=== PATIENT | male | born 1975 | race Two or more races ===

== ENCOUNTER 2024-10-07 20:47 | Inpatient (IN) | payer OTHER ==
[~2024-10-07] VITALS: Ht 177 cm; Wt 62.1 kg
[2024-10-07 20:10] VITALS: O2SAT 97
[2024-10-07 20:15] VITALS: BP 106/69; TEMP 99
[2024-10-07 23:10] VITALS: O2SAT 97
[2024-10-08] VITALS (14 sets, daily range): BP systolic 103–132; BP diastolic 55–78; TEMP 98–99; O2SAT 97–98
[2024-10-08] MEDS ORDERED: BLOOD SUGAR DIAGNOSTIC 1 EACH STRIP VI SCH
[2024-10-08] MEDS ORDERED: INSULIN REGULAR, HUMAN 1000 UNIT/10 ML VIAL SQ PRN
[2024-10-08] MEDS ORDERED: DEXTROSE 50% 50 ML DISP.SYRIN IV PRN (07:15)
[2024-10-08] MEDS: HYDROGEN PEROXIDE 3% 118 ML BOTTLE TP SCH (07:18)
[2024-10-08] MEDS ORDERED: VITAMINS A AND D 5 GM UD PKT TP PRN (09:15)
[2024-10-08] MEDS: COD LIVER OIL/ZINC OXIDE OINT 113 GM TUBE TP SCH ×2 (09:57→09:58)
[2024-10-08] MEDS: VITAMINS A AND D 5 GM UD PKT TP SCH (09:58)
[2024-10-08] MEDS: TUBERCULIN,PURIF.PROT.DERIV. 5 TU/0.1 ML TEST ID ONE (09:58)
[2024-10-08] MEDS: NEOMY/BACITRA/POLYMYXIN B OINT UD PACKET TP SCH ×6 (09:58)
[2024-10-08] MEDS: CHLORHEXIDINE GLUCONATE 15 ML MOUTHWASH MM SCH (11:47)
[2024-10-08] MEDS: BLOOD SUGAR DIAGNOSTIC 1 EACH STRIP VI SCH (12:32)
[2024-10-08] MEDS: INSULIN REGULAR, HUMAN 1000 UNIT/10 ML VIAL SQ PRN (12:37)
[2024-10-08] MEDS ORDERED: ACETAMINOPHEN 650 MG/20 ML UDC- SA PATIENTS-FEVER ONLY GT PRN (16:15)
[2024-10-08] MEDS: ACETYLCYSTEINE 20% 800 MG/4 ML VIAL INH SCH (16:45)
[2024-10-08] MEDS ORDERED: IRR STERIL WATER FOR IRR 1000 ML BOTTLE GT SCH (17:00)
[2024-10-08] MEDS: POLYVINYL ALCOHOL OPHT DROPS 15 ML BOTTLE EACHEYE SCH (17:56)
[2024-10-08] MEDS: CLONIDINE HCL 0.1 MG TABLET GT SCH (17:56)
[2024-10-08] MEDS: PROPRANOLOL HCL 10 MG TABLET GT SCH (17:56)
[2024-10-08] MEDS: IPRATROPIUM BROMIDE 0.5 MG/2.5 ML NEBU NEB SCH (19:30)
[2024-10-08] MEDS: ALBUTEROL SULFATE 2.5 MG/3 ML NEBU NEB SCH (19:30)
[2024-10-08] MEDS: POLYETHYLENE GLYCOL 3350 238 GM POWDER GT ONE (20:16)
[2024-10-08] MEDS: SENNOSIDES 1 TABLET GT SCH (20:19)
[2024-10-08] MEDS: AMANTADINE HCL 50 MG/5 ML GT SCH (21:00)
[2024-10-08] MEDS: ENOXAPARIN SODIUM 30 MG/0.3 ML DISP.SYRIN SUBCUT SCH (21:44)
[2024-10-09] VITALS (15 sets, daily range): BP systolic 97–132; BP diastolic 68–83; TEMP 97.8–99.6; O2SAT 97–98
[2024-10-09] MEDS: ACETAMINOPHEN 650 MG/20 ML UDC- SA PATIENTS-PAIN ONLY GT PRN (04:02)
[2024-10-09] MEDS ORDERED: ACETYLCYSTEINE 20% 800 MG/4 ML VIAL INH SCH (08:57)
[2024-10-09] MEDS: MULTIVIT, IRON, MIN NO. 8, FA TABLET GT SCH (09:00)
[2024-10-09] MEDS: PANTOPRAZOLE ORAL SUSPENSION 40 MG SUSPDR.PKT GT SCH (09:00)
[2024-10-09] MEDS: AMANTADINE HCL 50 MG/5 ML GT SCH (09:00)
[2024-10-09] MEDS: AMLODIPINE 5 MG TABLET GT SCH (09:00)
[2024-10-09] MEDS: CLONIDINE HCL 0.1 MG TABLET GT SCH (14:00)
[2024-10-09] MEDS: GLUCERNA 1.2 1000ML LIQUID GT PRN (19:18)
[2024-10-09] MEDS: ENOXAPARIN SODIUM 30 MG/0.3 ML DISP.SYRIN SUBCUT SCH (20:34)
[2024-10-10] VITALS (18 sets, daily range): BP systolic 104–121; BP diastolic 55–74; TEMP 98–99.5; O2SAT 97–98
[2024-10-10] MEDS: HYDROCODONE/APAP 5-325MG TABLET GT PRN (05:00)
[2024-10-10] MEDS: PANTOPRAZOLE ORAL SUSPENSION 40 MG SUSPDR.PKT GT SCH (05:01)
[2024-10-10] MEDS ORDERED: CLONIDINE HCL 0.2 MG TABLET GT SCH (14:00)
[2024-10-10] MEDS: CLONIDINE HCL 0.1 MG TABLET GT SCH (14:03)
[2024-10-10] MEDS ORDERED: PROPRANOLOL HCL 20 MG TABLET GT SCH (17:00)
[2024-10-10] MEDS: MULTIVIT, IRON, MIN NO. 8, FA TABLET GT SCH (21:12)
[2024-10-10] MEDS: MUPIROCIN 2% OINT 22 GM TUBE NS SCH (21:14)
[2024-10-11] VITALS (13 sets, daily range): BP systolic 119–131; BP diastolic 82–91; TEMP 98.7–99.2; O2SAT 97–98
[2024-10-12] VITALS (15 sets, daily range): BP systolic 101–108; BP diastolic 72; TEMP 97.8–99.1; O2SAT 97–98
[2024-10-13] VITALS (13 sets, daily range): BP systolic 109–117; BP diastolic 80–85; TEMP 98.1–99.3; O2SAT 96–99
[2024-10-13 07:30] LABS: PLATELET COUNT (AUTO) 334 K/uL (152-348); RED BLOOD CELL COUNT(AUTO) 4.55 MIL/uL (4.06-5.63); RED CELL DISTRIBUTION WIDTH 17.3 % (12.1-16.2); WHITE BLOOD COUNT (AUTO) 7.8 K/uL (3.6-10.2)
[2024-10-13 07:56] LABS: IRON, SERUM 39 ug/dL (50-175)
[2024-10-13 08:12] LABS: ASPARTATE AMINOTRANSFERASE 25 U/L (15-37); CREATININE 0.6 mg/dL (0.6-1.3); NT-PRO BNP 36 pg/mL (0-125); SODIUM SERUM 141 mmol/L (136-145); TOTAL PROTEIN, SERUM 7.6 g/dL (6.4-8.2); UREA NITROGEN, BLOOD 13 mg/dL (7-18)
[2024-10-14] VITALS (14 sets, daily range): BP systolic 124; BP diastolic 82–87; TEMP 98.8–99.6; O2SAT 95–99
[2024-10-14] MEDS: OMEPRAZOLE 40 MG CAPSULE.DR GT SCH (05:17)
[2024-10-14] MEDS ORDERED: ENOXAPARIN SODIUM 30 MG/0.3 ML DISP.SYRIN ONE (06:38)
[2024-10-15] VITALS (12 sets, daily range): BP systolic 115–126; BP diastolic 83–86; TEMP 99.1–99.3; O2SAT 97–100
[2024-10-16] VITALS (14 sets, daily range): BP systolic 126–132; BP diastolic 85–90; TEMP 97.1–98.6; O2SAT 97–98
[2024-10-17] VITALS (16 sets, daily range): BP systolic 116–122; BP diastolic 82–86; TEMP 97.5–98.4; O2SAT 96–98
[2024-10-17 16:00] LABS: PLATELET COUNT (AUTO) 314 K/uL (152-348); RED BLOOD CELL COUNT(AUTO) 4.59 MIL/uL (4.06-5.63); RED CELL DISTRIBUTION WIDTH 16.7 % (12.1-16.2); WHITE BLOOD COUNT (AUTO) 9.4 K/uL (3.6-10.2)
[2024-10-17 16:25] LABS: ASPARTATE AMINOTRANSFERASE 22 U/L (15-37); CREATININE 0.5 mg/dL (0.6-1.3); SODIUM SERUM 138 mmol/L (136-145); TOTAL PROTEIN, SERUM 7.6 g/dL (6.4-8.2); UREA NITROGEN, BLOOD 12 mg/dL (7-18)
[2024-10-17] MEDS: VANCOMYCIN IV 1,250 MG in IV DEXTROSE 5% 250 ML IV SCH (18:00)
[2024-10-17] MEDS ORDERED: MEROPENEM 1 G in IV NORMAL SALINE 100 ML IV SCH (22:00)
[2024-10-17] MEDS: MEROPENEM 1 G in IV NORMAL SALINE 100 ML IV SCH (22:00)
[2024-10-18] VITALS (11 sets, daily range): BP systolic 124–126; BP diastolic 89–91; TEMP 98.5–99.6; O2SAT 96–99
[2024-10-18] MEDS: VANCOMYCIN IV 1,250 MG in IV DEXTROSE 5% 250 ML IV SCH (18:28)
[2024-10-19] VITALS (13 sets, daily range): BP systolic 128–142; BP diastolic 86–96; TEMP 98.4–99.2; O2SAT 98–100
[2024-10-19] MEDS: NEOMY/BACITRA/POLYMYXIN B OINT UD PACKET TP SCH (10:05)
[2024-10-19] MEDS: VANCOMYCIN IV 1,250 MG in IV DEXTROSE 5% 250 ML IV SCH (16:28)
[2024-10-20] VITALS (11 sets, daily range): BP systolic 121–142; BP diastolic 88–99; TEMP 97.1–100.1; O2SAT 98–100
[2024-10-20] MEDS: MEROPENEM 1 G in IV NORMAL SALINE 100 ML IV SCH (18:00)
[2024-10-20] MEDS: VANCOMYCIN IV 1,250 MG in IV DEXTROSE 5% 250 ML IV SCH (18:00)
[2024-10-21] VITALS (14 sets, daily range): BP systolic 117–134; BP diastolic 81–93; TEMP 97.8–98.9; O2SAT 97–99
[2024-10-21] MEDS: INSULIN GLARGINE,HUM 300 UNITS/3 ML CARTRIDGE SQ SCH (05:54)
[2024-10-21 06:45] LABS: PLATELET COUNT (AUTO) 403 K/uL (152-348); RED BLOOD CELL COUNT(AUTO) 4.75 MIL/uL (4.06-5.63); RED CELL DISTRIBUTION WIDTH 16.7 % (12.1-16.2); WHITE BLOOD COUNT (AUTO) 7.5 K/uL (3.6-10.2)
[2024-10-21 06:55] LABS: CREATININE 0.6 mg/dL (0.6-1.3); SODIUM SERUM 140 mmol/L (136-145); UREA NITROGEN, BLOOD 14 mg/dL (7-18)
[2024-10-21] MEDS: NORMAL SALINE FLUSH 10 ML DISP.SYRIN IV SCH (09:00)
[2024-10-21 22:20] LABS: *BILIRUBIN,URIN NEGATIVE (NEGATIVE); *BLOOD, URINE NEGATIVE (NEGATIVE); *CLARITY,URINE CLEAR (CLEAR); *COLOR,URINE YELLOW (YELLOW); *KETONES,URINE NEGATIVE (NEGATIVE); *PROTEIN,URINE NEGATIVE (NEGATIVE); *UROBILINOGEN,URINE 0.2 E.U./dl (NORMAL); LEUKOCYTE ESTERASE ,URINE NEGATIVE (NEGATIVE); NITRITE, URINE NEGATIVE (NEGATIVE); UGLUCOSE NEGATIVE (NEGATIVE)
[2024-10-22] VITALS (14 sets, daily range): BP systolic 128–131; BP diastolic 85–95; TEMP 97.4–97.8; O2SAT 97–99
[2024-10-22] MEDS: VANCOMYCIN IV 1,250 MG in IV DEXTROSE 5% 250 ML IV SCH (18:00)
[2024-10-22] MEDS: ARGININE/GLUTAMINE/CALCIUM BMB 1 EACH POWD.PACK GT SCH (21:15)
[2024-10-23] VITALS (14 sets, daily range): BP systolic 127–137; BP diastolic 84–88; TEMP 98–98.2; O2SAT 97–99
[2024-10-23] MEDS: ASCORBIC ACID 500 MG TABLET GT SCH (21:04)
[2024-10-24] VITALS (14 sets, daily range): BP systolic 127–131; BP diastolic 85–93; TEMP 97.9–98.9; O2SAT 96–99
[2024-10-24] MEDS: NEOMY/BACITRA/POLYMYXIN B OINT UD PACKET TP SCH (09:21)
[2024-10-25] VITALS (12 sets, daily range): BP systolic 127–132; BP diastolic 87–96; TEMP 97.9–98; O2SAT 97–99
[2024-10-26] VITALS (15 sets, daily range): BP systolic 112–132; BP diastolic 71–90; TEMP 98–98.1; O2SAT 97–98
[2024-10-27] VITALS (14 sets, daily range): BP systolic 132–135; BP diastolic 93–95; TEMP 98.9–99; O2SAT 97–98
[2024-10-27 07:41] LABS: PLATELET COUNT (AUTO) 501 K/uL (152-348); RED BLOOD CELL COUNT(AUTO) 4.79 MIL/uL (4.06-5.63); RED CELL DISTRIBUTION WIDTH 16.1 % (12.1-16.2); WHITE BLOOD COUNT (AUTO) 7.7 K/uL (3.6-10.2)
[2024-10-27 07:46] LABS: ASPARTATE AMINOTRANSFERASE 202 U/L (15-37); CREATININE 0.5 mg/dL (0.6-1.3); SODIUM SERUM 136 mmol/L (136-145); TOTAL PROTEIN, SERUM 7.9 g/dL (6.4-8.2); UREA NITROGEN, BLOOD 14 mg/dL (7-18)
[2024-10-28] VITALS (12 sets, daily range): BP systolic 120–122; BP diastolic 86–87; TEMP 98.4–98.6; O2SAT 97–98
[2024-10-28] MEDS ORDERED: CIPROFLOXACIN HCL 250 MG TABLET PO SCH (21:00)
[2024-10-28] MEDS: CIPROFLOXACIN HCL 500 MG TABLET GT SCH (22:00)
[2024-10-29] VITALS (11 sets, daily range): BP systolic 117–120; BP diastolic 79–87; TEMP 98.5–98.9; O2SAT 97–98
[2024-10-30] VITALS (13 sets, daily range): BP systolic 116–120; BP diastolic 79–80; TEMP 97.7–97.9; O2SAT 97–98
[2024-10-30] MEDS: GLUCERNA 1.2 1000ML LIQUID GT PRN (14:27)
[2024-10-31] VITALS (13 sets, daily range): BP systolic 125–144; BP diastolic 75–87; TEMP 98.4–98.8; O2SAT 98
[2024-10-31] MEDS: INSULIN GLARGINE,HUM 300 UNITS/3 ML CARTRIDGE SQ SCH (21:10)
[2024-11-01] VITALS (13 sets, daily range): BP systolic 123–127; BP diastolic 79–85; TEMP 98.8; O2SAT 98
[2024-11-02] VITALS (13 sets, daily range): BP systolic 115–125; BP diastolic 83–84; TEMP 98.6–98.7; O2SAT 96–98
[2024-11-02] MEDS: INSULIN GLARGINE,HUM 300 UNITS/3 ML CARTRIDGE SQ SCH (21:00)
[2024-11-03] VITALS (13 sets, daily range): BP systolic 120–130; BP diastolic 84–90; TEMP 97.8–98.6; O2SAT 96–98
[2024-11-03 08:04] LABS: PLATELET COUNT (AUTO) 371 K/uL (152-348); RED BLOOD CELL COUNT(AUTO) 5.00 MIL/uL (4.06-5.63); RED CELL DISTRIBUTION WIDTH 16.1 % (12.1-16.2); WHITE BLOOD COUNT (AUTO) 8.4 K/uL (3.6-10.2)
[2024-11-03 10:51] LABS: ASPARTATE AMINOTRANSFERASE 164 U/L (15-37); CREATININE 0.5 mg/dL (0.6-1.3); SODIUM SERUM 141 mmol/L (136-145); TOTAL PROTEIN, SERUM 7.7 g/dL (6.4-8.2); UREA NITROGEN, BLOOD 14 mg/dL (7-18)
[2024-11-03 15:02] LABS: PLATELET COUNT (AUTO) 374 K/uL (152-348); RED BLOOD CELL COUNT(AUTO) 4.90 MIL/uL (4.06-5.63); RED CELL DISTRIBUTION WIDTH 16.0 % (12.1-16.2); WHITE BLOOD COUNT (AUTO) 8.7 K/uL (3.6-10.2)
[2024-11-04] VITALS (12 sets, daily range): BP systolic 118; BP diastolic 80; TEMP 96.1; O2SAT 96–99
[2024-11-04] MEDS ORDERED: MEDIHONEY= THERAHONEY 1.5 OZ TUBE TOP PRN (11:00)
[2024-11-05] VITALS (13 sets, daily range): BP systolic 127–133; BP diastolic 86–92; TEMP 98.2–98.6; O2SAT 95–99
[2024-11-05] MEDS: MEDIHONEY= THERAHONEY 1.5 OZ TUBE TOP SCH (09:13)
[2024-11-06] VITALS (14 sets, daily range): BP systolic 119–121; BP diastolic 82; TEMP 97.2–97.7; O2SAT 97–99
[2024-11-07] VITALS (14 sets, daily range): BP systolic 110–122; BP diastolic 80–89; TEMP 98–98.4; O2SAT 95–99
[2024-11-08] VITALS (13 sets, daily range): BP systolic 123–124; BP diastolic 84–88; TEMP 97.9–98.8; O2SAT 95–99
[2024-11-09] VITALS (14 sets, daily range): BP systolic 115–131; BP diastolic 78–86; TEMP 98.4–98.8; O2SAT 96–98
[2024-11-10] VITALS (10 sets, daily range): BP systolic 122; BP diastolic 84; TEMP 98.8; O2SAT 97–100
[2024-11-10 14:36] LABS: PLATELET COUNT (AUTO) 293 K/uL (152-348); RED BLOOD CELL COUNT(AUTO) 5.41 MIL/uL (4.06-5.63); RED CELL DISTRIBUTION WIDTH 16.1 % (12.1-16.2); WHITE BLOOD COUNT (AUTO) 10.9 K/uL (3.6-10.2)
[2024-11-10 15:07] LABS: ASPARTATE AMINOTRANSFERASE 99 U/L (15-37); CREATININE 0.6 mg/dL (0.6-1.3); SODIUM SERUM 139 mmol/L (136-145); TOTAL PROTEIN, SERUM 7.5 g/dL (6.4-8.2); UREA NITROGEN, BLOOD 17 mg/dL (7-18)
[2024-11-10] MEDS: COD LIVER OIL/ZINC OXIDE OINT 113 GM TUBE TP SCH (21:00)
[2024-11-11] VITALS (13 sets, daily range): BP systolic 125–137; BP diastolic 90–94; TEMP 98–98.4; O2SAT 96–100
[2024-11-11] MEDS ORDERED: CHLORHEXIDINE GLUCONATE 15 ML MOUTHWASH MM SCH (09:00)
[2024-11-11] MEDS: BACLOFEN 10 MG TABLET GT SCH (21:00)
[2024-11-12] VITALS (13 sets, daily range): BP systolic 121–134; BP diastolic 87–92; TEMP 96.8–98; O2SAT 97–98
[2024-11-13] VITALS (13 sets, daily range): BP systolic 107–114; BP diastolic 73–76; TEMP 97.9–98.1; O2SAT 96–99
[2024-11-14] VITALS (11 sets, daily range): BP systolic 110–120; BP diastolic 77–85; TEMP 98.8–99.1; O2SAT 97–99
[2024-11-14 06:09] LABS: FOLATE (FOLIC ACID), SERUM >20.0 ng/mL (>3.0)
[2024-11-15] VITALS (13 sets, daily range): BP systolic 110–123; BP diastolic 78–86; TEMP 98–98.5; O2SAT 97–100
[2024-11-16] VITALS (11 sets, daily range): BP systolic 119–125; BP diastolic 78–80; TEMP 97.6–98.7; O2SAT 97–100
[2024-11-17] VITALS (13 sets, daily range): BP systolic 107–120; BP diastolic 62–82; TEMP 98.2–98.5; O2SAT 97–99
[2024-11-17 11:09] LABS: METHYLMALONIC ACID 79 nmol/L (0-378)
[2024-11-18] VITALS (13 sets, daily range): BP systolic 110–130; BP diastolic 72–88; TEMP 89.7–98.7; O2SAT 96–99
[2024-11-19] VITALS (13 sets, daily range): BP systolic 123–124; BP diastolic 82–84; TEMP 98.6–98.7; O2SAT 98–99
[2024-11-20] VITALS (12 sets, daily range): BP systolic 126–128; BP diastolic 89–91; TEMP 97.6–98.6; O2SAT 96–99
[2024-11-21] VITALS (13 sets, daily range): BP systolic 117–121; BP diastolic 81–87; TEMP 97.9–98; O2SAT 95–99
[2024-11-22] VITALS (12 sets, daily range): BP systolic 117–125; BP diastolic 77–83; TEMP 97.2–97.8; O2SAT 96–99
[2024-11-23] VITALS (13 sets, daily range): BP systolic 114–130; BP diastolic 79–90; TEMP 98.7–98.8; O2SAT 98–99
[2024-11-24] VITALS (12 sets, daily range): BP systolic 116–128; BP diastolic 85–89; TEMP 98.5–98.6; O2SAT 97–99
[2024-11-25] VITALS (12 sets, daily range): BP systolic 113–131; BP diastolic 66–86; TEMP 97.7–98; O2SAT 97–99
[2024-11-26] VITALS (12 sets, daily range): BP systolic 119–125; BP diastolic 82; TEMP 97.8–97.9; O2SAT 96–99
[2024-11-26] MEDS: NEOMY/BACITRA/POLYMYXIN B OINT UD PACKET TP SCH (09:06)
[2024-11-27] VITALS (14 sets, daily range): BP systolic 121–127; BP diastolic 78–97; TEMP 98–98.1; O2SAT 96–98
[2024-11-27] MEDS: NEOMY/BACITRA/POLYMYXIN B OINT UD PACKET TP SCH (09:05)
[2024-11-28] VITALS (16 sets, daily range): BP systolic 118–122; BP diastolic 72–83; TEMP 97.9; O2SAT 96–98
[2024-11-29] VITALS (15 sets, daily range): BP systolic 118–121; BP diastolic 85–87; TEMP 97.6–97.9; O2SAT 95–98
[2024-11-30] VITALS (12 sets, daily range): BP systolic 114–127; BP diastolic 78–88; TEMP 98–98.2; O2SAT 96–99
[2024-12-01] VITALS (12 sets, daily range): BP systolic 118–125; BP diastolic 80–85; TEMP 97.6–98.5; O2SAT 97–99
[2024-12-02] VITALS (13 sets, daily range): BP systolic 119–127; BP diastolic 81–85; TEMP 98.6–98.8; O2SAT 97–99
[2024-12-03] VITALS (13 sets, daily range): BP systolic 115–119; BP diastolic 80–85; TEMP 97.9–98.2; O2SAT 97–99
[2024-12-04] VITALS (14 sets, daily range): BP systolic 119–121; BP diastolic 85–86; TEMP 97.6–98.1; O2SAT 97–98
[2024-12-05] VITALS (14 sets, daily range): BP systolic 118–124; BP diastolic 85; TEMP 97.4–98.4; O2SAT 97–98
[2024-12-06] VITALS (11 sets, daily range): BP systolic 122–136; BP diastolic 77–86; TEMP 98–98.5; O2SAT 97–98
[2024-12-07] VITALS (13 sets, daily range): BP systolic 115; BP diastolic 81; TEMP 97.5; O2SAT 97–99
[2024-12-08] VITALS (14 sets, daily range): BP systolic 127–130; BP diastolic 85–90; TEMP 97.7–98.8; O2SAT 98
[2024-12-09] VITALS (14 sets, daily range): BP systolic 113–126; BP diastolic 70–77; TEMP 97.6–98.3; O2SAT 96–98
[2024-12-09] MEDS: MINERAL OIL/PETROLAT OPHT OINT 3.5 GM TUBE RIGHTEYE SCH (16:34)
[2024-12-10] VITALS (13 sets, daily range): BP systolic 128–131; BP diastolic 84–87; TEMP 98–98.3; O2SAT 98
[2024-12-11] VITALS (14 sets, daily range): BP systolic 125–139; BP diastolic 86–97; TEMP 95.9–98; O2SAT 96–98
[2024-12-12] VITALS (14 sets, daily range): BP systolic 119–128; BP diastolic 79–86; TEMP 98.3–98.6; O2SAT 96–99
[2024-12-13] VITALS (13 sets, daily range): BP systolic 120–124; BP diastolic 82–85; TEMP 98.3–98.7; O2SAT 95–99
[2024-12-14] VITALS (14 sets, daily range): BP systolic 124–126; BP diastolic 83–85; TEMP 98.7–99.1; O2SAT 96–99
[2024-12-15] VITALS (12 sets, daily range): BP systolic 117–118; BP diastolic 79–86; TEMP 98.9–99; O2SAT 95–99
[2024-12-15 07:39] LABS: PLATELET COUNT (AUTO) 255 K/uL (152-348); RED BLOOD CELL COUNT(AUTO) 5.47 MIL/uL (4.06-5.63); RED CELL DISTRIBUTION WIDTH 16.9 % (12.1-16.2); WHITE BLOOD COUNT (AUTO) 8.8 K/uL (3.6-10.2)
[2024-12-15 08:01] LABS: ASPARTATE AMINOTRANSFERASE 30 U/L (15-37); CREATININE 0.5 mg/dL (0.6-1.3); SODIUM SERUM 144 mmol/L (136-145); TOTAL PROTEIN, SERUM 7.9 g/dL (6.4-8.2); UREA NITROGEN, BLOOD 17 mg/dL (7-18)
[2024-12-16] VITALS (13 sets, daily range): BP systolic 121–129; BP diastolic 80–94; TEMP 98.7–98.9; O2SAT 95–99
[2024-12-17] VITALS (13 sets, daily range): BP systolic 128–138; BP diastolic 89–90; TEMP 98–99; O2SAT 95–99
[2024-12-18] VITALS (14 sets, daily range): BP systolic 129–134; BP diastolic 88–91; TEMP 97.7–99.1; O2SAT 95–99
[2024-12-19] VITALS (13 sets, daily range): BP systolic 113–129; BP diastolic 79–90; TEMP 97.6–98.7; O2SAT 97–99
[2024-12-20] VITALS (14 sets, daily range): BP systolic 114–131; BP diastolic 70–93; TEMP 97.2–98.8; O2SAT 97–99
[2024-12-21] VITALS (13 sets, daily range): BP systolic 115–116; BP diastolic 79–81; TEMP 97.8–98.3; O2SAT 97–99
[2024-12-22] VITALS (14 sets, daily range): BP systolic 116–119; BP diastolic 77–78; TEMP 98.6–98.7; O2SAT 96–99
[2024-12-22] MEDS ORDERED: COD LIVER OIL/ZINC OXIDE OINT 113 GM TUBE TOP PRN (19:15)
[2024-12-23] VITALS (12 sets, daily range): BP systolic 115–127; BP diastolic 82–88; TEMP 97.5–98.8; O2SAT 96–99
[2024-12-24] VITALS (13 sets, daily range): BP systolic 119–152; BP diastolic 85–96; TEMP 98–98.6; O2SAT 96–99
[2024-12-25] VITALS (12 sets, daily range): BP systolic 113–132; BP diastolic 80–95; TEMP 98.1–98.5; O2SAT 97–99
[2024-12-26] VITALS (14 sets, daily range): BP systolic 116–117; BP diastolic 77–84; TEMP 98.1–98.3; O2SAT 97–99
[2024-12-27] VITALS (14 sets, daily range): BP systolic 120–127; BP diastolic 80–85; TEMP 98.1–98.4; O2SAT 97–99
[2024-12-28] VITALS (13 sets, daily range): BP systolic 121–122; BP diastolic 81–83; TEMP 97.6–97.9; O2SAT 97–99
[2024-12-29] VITALS (13 sets, daily range): BP systolic 116–117; BP diastolic 79–80; TEMP 97.5–98.4; O2SAT 98–99
[2024-12-29] MEDS ORDERED: MEDIHONEY= THERAHONEY 1.5 OZ TUBE TOP PRN (18:45)
[2024-12-29] MEDS: COD LIVER OIL/ZINC OXIDE OINT 113 GM TUBE TP SCH (21:31)
[2024-12-30] VITALS (12 sets, daily range): BP systolic 114–124; BP diastolic 75–83; TEMP 97.7–98; O2SAT 97–99
[2024-12-30] MEDS: MEDIHONEY= THERAHONEY 1.5 OZ TUBE TOP SCH (09:00)
[2024-12-31] VITALS (13 sets, daily range): BP systolic 116–126; BP diastolic 78–85; TEMP 96.6–98.2; O2SAT 97–99
[2025-01-01] VITALS (13 sets, daily range): BP systolic 120–128; BP diastolic 80–85; TEMP 97.7–98.4; O2SAT 97–99
[2025-01-02] VITALS (14 sets, daily range): BP systolic 104–129; BP diastolic 73–87; TEMP 97.2–97.6; O2SAT 96–99
[2025-01-03] VITALS (15 sets, daily range): BP systolic 122–130; BP diastolic 79–83; TEMP 98.3–98.5; O2SAT 97–100
[2025-01-04] VITALS (16 sets, daily range): BP systolic 113–123; BP diastolic 79–81; TEMP 98.1–98.6; O2SAT 97–99
[2025-01-05] VITALS (14 sets, daily range): BP systolic 120–148; BP diastolic 79–93; TEMP 99.1–99.7; O2SAT 97–99
[2025-01-06] VITALS (14 sets, daily range): BP systolic 114–134; BP diastolic 80–88; TEMP 97.6–98.5; O2SAT 97–99
[2025-01-07] VITALS (12 sets, daily range): BP systolic 123–132; BP diastolic 82–90; TEMP 98–98.5; O2SAT 96–99
[2025-01-08] VITALS (14 sets, daily range): BP systolic 126–128; BP diastolic 87–89; TEMP 98.2–98.5; O2SAT 96–99
[2025-01-08] MEDS: HYDROGEN PEROXIDE 3% 118 ML BOTTLE TP PRN (20:55)
[2025-01-09] VITALS (15 sets, daily range): BP systolic 121–128; BP diastolic 78–89; TEMP 98.1–98.4; O2SAT 97–99
[2025-01-10] VITALS (14 sets, daily range): BP systolic 112–128; BP diastolic 72–88; TEMP 97.1–97.6; O2SAT 97–99
[2025-01-11] VITALS (14 sets, daily range): BP systolic 124–140; BP diastolic 80–94; TEMP 96.3–98.6; O2SAT 97–99
[2025-01-12] VITALS (14 sets, daily range): BP systolic 114–122; BP diastolic 81–84; TEMP 98.2–98.8; O2SAT 97–99
[2025-01-13] VITALS (13 sets, daily range): BP systolic 118–129; BP diastolic 78–81; TEMP 98.4–98.5; O2SAT 97–99
[2025-01-14] VITALS (12 sets, daily range): BP systolic 127–131; BP diastolic 85–91; TEMP 97.8–99.1; O2SAT 98–99
[2025-01-15] VITALS (13 sets, daily range): BP systolic 118–119; BP diastolic 82–84; TEMP 98.2–98.6; O2SAT 97–99
[2025-01-16] VITALS (13 sets, daily range): BP systolic 98–122; BP diastolic 49–79; TEMP 97.9–98.2; O2SAT 97–99
[2025-01-17] VITALS (14 sets, daily range): BP systolic 119–133; BP diastolic 86–87; TEMP 97.7–98.6; O2SAT 97–99
[2025-01-18] VITALS (13 sets, daily range): BP systolic 115; BP diastolic 83; TEMP 98.2; O2SAT 97–99
[2025-01-19] VITALS (12 sets, daily range): BP systolic 102–118; BP diastolic 76–84; TEMP 97.4–98.9; O2SAT 97–99
[2025-01-20] VITALS (11 sets, daily range): BP systolic 121; BP diastolic 84; TEMP 96.3–97.8; O2SAT 97–99
[2025-01-21] VITALS (15 sets, daily range): BP systolic 122–132; BP diastolic 86; TEMP 97.9–98.5; O2SAT 96–99
[2025-01-22] VITALS (14 sets, daily range): BP systolic 107–124; BP diastolic 80–85; TEMP 98.2–98.5; O2SAT 96–99
[2025-01-23] VITALS (13 sets, daily range): BP systolic 130–137; BP diastolic 88–94; TEMP 98.7–99; O2SAT 96–99
[2025-01-24] VITALS (10 sets, daily range): BP systolic 115–123; BP diastolic 76–86; TEMP 97.8–98.2; O2SAT 96–99
[2025-01-25] VITALS (13 sets, daily range): BP systolic 116–140; BP diastolic 80–95; TEMP 97.6–98.5; O2SAT 96–99
[2025-01-25] MEDS: NEOMY/BACITRA/POLYMYXIN B OINT UD PACKET TP SCH (10:58)
[2025-01-25] MEDS: COD LIVER OIL/ZINC OXIDE OINT 113 GM TUBE TP SCH (21:00)
[2025-01-26] VITALS (12 sets, daily range): BP systolic 130; BP diastolic 84; TEMP 94.7; O2SAT 96–99
[2025-01-27] VITALS (13 sets, daily range): BP systolic 121–138; BP diastolic 79–91; TEMP 98–98.1; O2SAT 97–99
[2025-01-27 07:08] LABS: PLATELET COUNT (AUTO) 263 K/uL (152-348); RED BLOOD CELL COUNT(AUTO) 5.23 MIL/uL (4.06-5.63); RED CELL DISTRIBUTION WIDTH 16.9 % (12.1-16.2); WHITE BLOOD COUNT (AUTO) 6.1 K/uL (3.6-10.2)
[2025-01-27 07:32] LABS: ASPARTATE AMINOTRANSFERASE 39 U/L (15-37); CREATININE 0.5 mg/dL (0.6-1.3); SODIUM SERUM 145 mmol/L (136-145); TOTAL PROTEIN, SERUM 7.7 g/dL (6.4-8.2); UREA NITROGEN, BLOOD 17 mg/dL (7-18)
[2025-01-28] VITALS (12 sets, daily range): BP systolic 128; BP diastolic 83–89; TEMP 97.3–98.6; O2SAT 97–99
[2025-01-29] VITALS (13 sets, daily range): BP systolic 111–115; BP diastolic 70–77; TEMP 97.5–98.2; O2SAT 97–99
[2025-01-30] VITALS (12 sets, daily range): BP systolic 118–121; BP diastolic 76–83; TEMP 98.2–98.6; O2SAT 97–98
[2025-01-31] VITALS (15 sets, daily range): BP systolic 120; BP diastolic 75; TEMP 98.2; O2SAT 97–98
[2025-02-01] VITALS (14 sets, daily range): BP systolic 140–146; BP diastolic 80–89; TEMP 97.7–97.8; O2SAT 97–99
[2025-02-02] VITALS (12 sets, daily range): BP systolic 105–126; BP diastolic 68–84; TEMP 97.5–98.3; O2SAT 97–99
[2025-02-03] VITALS (12 sets, daily range): BP systolic 119–120; BP diastolic 81–82; TEMP 97.7–98.2; O2SAT 97–99
[2025-02-04] VITALS (13 sets, daily range): BP systolic 121–126; BP diastolic 82–85; TEMP 98–98.2; O2SAT 97–99
[2025-02-05] VITALS (14 sets, daily range): BP systolic 109–123; BP diastolic 73–83; TEMP 97.2–97.7; O2SAT 98–99
[2025-02-06] VITALS (14 sets, daily range): BP systolic 127–132; BP diastolic 79–88; TEMP 97.7–98; O2SAT 97–99
[2025-02-07] VITALS (11 sets, daily range): BP systolic 127–136; BP diastolic 88–91; TEMP 98.2–98.4; O2SAT 97–99
[2025-02-08] VITALS (13 sets, daily range): BP systolic 118–130; BP diastolic 84–86; TEMP 98.2–98.7; O2SAT 97–99
[2025-02-09] VITALS (10 sets, daily range): BP systolic 117; BP diastolic 78; TEMP 98.7; O2SAT 97–99
[2025-02-10] VITALS (14 sets, daily range): BP systolic 120–134; BP diastolic 85–89; TEMP 98–98.4; O2SAT 97–99
[2025-02-11] VITALS (14 sets, daily range): BP systolic 119–136; BP diastolic 83–91; TEMP 97.6–97.7; O2SAT 98–99
[2025-02-12] VITALS (11 sets, daily range): BP systolic 121–131; BP diastolic 81–89; TEMP 97.9–98.9; O2SAT 98–99
[2025-02-13] VITALS (14 sets, daily range): BP systolic 119–133; BP diastolic 87–93; TEMP 98–98.8; O2SAT 98–99
[2025-02-14] VITALS (13 sets, daily range): BP systolic 125–139; BP diastolic 84–92; TEMP 97.6–97.9; O2SAT 97–99
[2025-02-15] VITALS (14 sets, daily range): BP systolic 106–125; BP diastolic 74–87; TEMP 97.8; O2SAT 97–99
[2025-02-16] VITALS (14 sets, daily range): BP systolic 126–143; BP diastolic 76–91; TEMP 97.4–98.5; O2SAT 97–99
[2025-02-17] VITALS (14 sets, daily range): BP systolic 122–133; BP diastolic 75–90; TEMP 97.9–98.9; O2SAT 96–99
[2025-02-18] VITALS (13 sets, daily range): BP systolic 126–139; BP diastolic 88–98; TEMP 98.2–98.3; O2SAT 98–99
[2025-02-19] VITALS (13 sets, daily range): BP systolic 122–123; BP diastolic 81–88; TEMP 98.1–98.4; O2SAT 98–99
[2025-02-20] VITALS (13 sets, daily range): BP systolic 128–135; BP diastolic 86–91; TEMP 97.9–98; O2SAT 97–99
[2025-02-21] VITALS (15 sets, daily range): BP systolic 127–138; BP diastolic 85–94; TEMP 97.7–99.2; O2SAT 98–99
[2025-02-22] VITALS (15 sets, daily range): BP systolic 121–125; BP diastolic 83–87; TEMP 97–97.8; O2SAT 97–99
[2025-02-23] VITALS (14 sets, daily range): BP systolic 125–136; BP diastolic 80–85; TEMP 97.8–98.4; O2SAT 97–99
[2025-02-24] VITALS (13 sets, daily range): BP systolic 116–118; BP diastolic 75–77; TEMP 98.4–98.5; O2SAT 97–99
[2025-02-25] VITALS (13 sets, daily range): BP systolic 121–125; BP diastolic 80–89; TEMP 97.8–98.5; O2SAT 97–99
[2025-02-26] VITALS (13 sets, daily range): BP systolic 125–126; BP diastolic 82–88; TEMP 97.7–98.2; O2SAT 97–99
[2025-02-27] VITALS (14 sets, daily range): BP systolic 136–137; BP diastolic 92–94; TEMP 97.7–97.9; O2SAT 97–99
[2025-02-28] VITALS (14 sets, daily range): BP systolic 120–127; BP diastolic 79–88; TEMP 98–98.9; O2SAT 97–99
[2025-03-01] VITALS (14 sets, daily range): BP systolic 116–135; BP diastolic 79–92; TEMP 97.9–98.2; O2SAT 97–99
[2025-03-02] VITALS (12 sets, daily range): BP systolic 118–127; BP diastolic 73–85; TEMP 98–98.8; O2SAT 97–99
[2025-03-03] VITALS (15 sets, daily range): BP systolic 124–133; BP diastolic 76–83; TEMP 97.6–97.7; O2SAT 97–99
[2025-03-04] VITALS (15 sets, daily range): BP systolic 122–156; BP diastolic 85–90; TEMP 98.4–98.5; O2SAT 97–99
[2025-03-05] VITALS (14 sets, daily range): BP systolic 120–126; BP diastolic 75–84; TEMP 98.1–98.2; O2SAT 97–99
[2025-03-06] VITALS (13 sets, daily range): BP systolic 113–125; BP diastolic 77–78; TEMP 97.5–97.8; O2SAT 97–99
[2025-03-07] VITALS (14 sets, daily range): BP systolic 125–143; BP diastolic 80–95; TEMP 97.9–98; O2SAT 97–99
[2025-03-08] VITALS (13 sets, daily range): BP systolic 128–131; BP diastolic 87–93; TEMP 98–98.1; O2SAT 97–99
[2025-03-09] VITALS (13 sets, daily range): BP systolic 122–153; BP diastolic 85–90; TEMP 98–98.1; O2SAT 97–99
[2025-03-10] VITALS (12 sets, daily range): BP systolic 112–125; BP diastolic 77–84; TEMP 97.8–98.8; O2SAT 97–99
[2025-03-10] MEDS: TIZANIDINE HCL 4 MG TABLET GT SCH (21:00)
[2025-03-11] VITALS (12 sets, daily range): BP systolic 122–135; BP diastolic 79–93; TEMP 98.2–98.4; O2SAT 97–99
[2025-03-12] VITALS (10 sets, daily range): BP systolic 113–125; BP diastolic 79–83; TEMP 97.3–98.6; O2SAT 97–99
[2025-03-13] VITALS (14 sets, daily range): BP systolic 116–129; BP diastolic 69–90; TEMP 97.8–98.1; O2SAT 97–99
[2025-03-14] VITALS (13 sets, daily range): BP systolic 125; BP diastolic 86; TEMP 97.8; O2SAT 97–99
[2025-03-15] VITALS (14 sets, daily range): BP systolic 128–134; BP diastolic 84–92; TEMP 98–98.1; O2SAT 97–99
[2025-03-16] VITALS (16 sets, daily range): BP systolic 110–118; BP diastolic 76–79; TEMP 97.9–98.1; O2SAT 97–99
[2025-03-17] VITALS (14 sets, daily range): BP systolic 120–127; BP diastolic 74–82; TEMP 97.3–98.3; O2SAT 97–99
[2025-03-17 07:12] LABS: PLATELET COUNT (AUTO) 246 K/uL (152-348); RED BLOOD CELL COUNT(AUTO) 5.09 MIL/uL (4.06-5.63); RED CELL DISTRIBUTION WIDTH 14.7 % (12.1-16.2); WHITE BLOOD COUNT (AUTO) 5.9 K/uL (3.6-10.2)
[2025-03-17 07:42] LABS: CREATININE 0.6 mg/dL (0.6-1.3); SODIUM SERUM 139 mmol/L (136-145); UREA NITROGEN, BLOOD 12 mg/dL (7-18)
[2025-03-18] VITALS (13 sets, daily range): BP systolic 118–123; BP diastolic 81–86; TEMP 97.9–98.2; O2SAT 97–99
[2025-03-19] VITALS (13 sets, daily range): BP systolic 122–133; BP diastolic 88–92; TEMP 97.7–98.7; O2SAT 97–99
[2025-03-20] VITALS (13 sets, daily range): BP systolic 133–136; BP diastolic 88–89; TEMP 97.8–98.6; O2SAT 97–99
[2025-03-21] VITALS (12 sets, daily range): BP systolic 127–132; BP diastolic 81–90; TEMP 97.4–98.5; O2SAT 97–99
[2025-03-22] VITALS (12 sets, daily range): BP systolic 110–116; BP diastolic 76–77; TEMP 97.2–97.9; O2SAT 97–99
[2025-03-23] VITALS (12 sets, daily range): BP systolic 116–140; BP diastolic 78–94; TEMP 97.8–98.2; O2SAT 97–99
[2025-03-24] VITALS (13 sets, daily range): BP systolic 129–141; BP diastolic 87–93; TEMP 97.8–98.8; O2SAT 98–99
[2025-03-25] VITALS (13 sets, daily range): BP systolic 111–120; BP diastolic 67–83; TEMP 98.7–98.8; O2SAT 97–99
[2025-03-26] VITALS (14 sets, daily range): BP systolic 113–121; BP diastolic 75–82; TEMP 97.8–98.8; O2SAT 98–99
[2025-03-27] VITALS (12 sets, daily range): BP systolic 118; BP diastolic 75; TEMP 97.6; O2SAT 98–99
[2025-03-28] VITALS (11 sets, daily range): BP systolic 100–119; BP diastolic 67–81; TEMP 97.6–98.6; O2SAT 98–99
[2025-03-29] VITALS (14 sets, daily range): BP systolic 118–123; BP diastolic 59–84; TEMP 97.7–98.5; O2SAT 97–99
[2025-03-30] VITALS (13 sets, daily range): BP systolic 109–131; BP diastolic 64–82; TEMP 97.4–97.5; O2SAT 97–99
[2025-03-31] VITALS (13 sets, daily range): BP systolic 111–117; BP diastolic 78–84; TEMP 97.8–97.9; O2SAT 96–99
[2025-04-01] VITALS (13 sets, daily range): BP systolic 117–127; BP diastolic 72–80; TEMP 97.8–98.7; O2SAT 97–99
[2025-04-02] VITALS (13 sets, daily range): BP systolic 119–124; BP diastolic 84–86; TEMP 97.2–97.5; O2SAT 97–99
[2025-04-03] VITALS (13 sets, daily range): BP systolic 111–130; BP diastolic 79–91; TEMP 97.3–97.6; O2SAT 96–99
[2025-04-04] VITALS (14 sets, daily range): BP systolic 119–131; BP diastolic 84–90; TEMP 97.8–97.9; O2SAT 97–99
[2025-04-05] VITALS (13 sets, daily range): BP systolic 111–117; BP diastolic 76–78; TEMP 98–98.2; O2SAT 97–99
[2025-04-06] VITALS (13 sets, daily range): BP systolic 119–123; BP diastolic 80–83; TEMP 98; O2SAT 97–99
[2025-04-07] VITALS (14 sets, daily range): BP systolic 114–127; BP diastolic 77–82; TEMP 97.8–98.2; O2SAT 97–99
[2025-04-08] VITALS (14 sets, daily range): BP systolic 115–125; BP diastolic 74–87; TEMP 98.1–98.2; O2SAT 97–99
[2025-04-08] MEDS: BACLOFEN 10 MG TABLET GT SCH (17:25)
[2025-04-09] VITALS (13 sets, daily range): BP systolic 116–133; BP diastolic 74–82; TEMP 97.8–98.3; O2SAT 98–99
[2025-04-09] MEDS: BACLOFEN 10 MG TABLET GT SCH (22:13)
[2025-04-10] VITALS (13 sets, daily range): BP systolic 113–123; BP diastolic 78–84; TEMP 97.8–98.3; O2SAT 98–99
[2025-04-10] MEDS: BACLOFEN 10 MG TABLET GT SCH (14:00)
[2025-04-11] VITALS (11 sets, daily range): BP systolic 95–100; BP diastolic 61–66; TEMP 98; O2SAT 98–100
[2025-04-12] VITALS (13 sets, daily range): BP systolic 105–131; BP diastolic 68–85; TEMP 97–97.8; O2SAT 97–99
[2025-04-13] VITALS (12 sets, daily range): BP systolic 111; BP diastolic 77; TEMP 98.7; O2SAT 97–99
[2025-04-14] VITALS (11 sets, daily range): BP systolic 116–117; BP diastolic 71–76; TEMP 97.5–98.3; O2SAT 97–99
[2025-04-15] VITALS (12 sets, daily range): BP systolic 100–110; BP diastolic 68–72; TEMP 97.1–97.7; O2SAT 95–99
[2025-04-16] VITALS (14 sets, daily range): BP systolic 105–114; BP diastolic 59–78; TEMP 97.6–99.4; O2SAT 98–99
[2025-04-17] VITALS (15 sets, daily range): BP systolic 110–124; BP diastolic 62–79; TEMP 97.4–97.8; O2SAT 98–99
[2025-04-18] VITALS (14 sets, daily range): BP systolic 114–129; BP diastolic 70–84; TEMP 97.5–97.8; O2SAT 98–99
[2025-04-19] VITALS (13 sets, daily range): BP systolic 113–119; BP diastolic 74–78; TEMP 97.9–98.4; O2SAT 98–99
[2025-04-20] VITALS (13 sets, daily range): BP systolic 134–135; BP diastolic 73–77; TEMP 97.2–98.4; O2SAT 98–99
[2025-04-20 07:19] LABS: PLATELET COUNT (AUTO) 233 K/uL (152-348); RED BLOOD CELL COUNT(AUTO) 5.09 MIL/uL (4.06-5.63); RED CELL DISTRIBUTION WIDTH 14.4 % (12.1-16.2); WHITE BLOOD COUNT (AUTO) 5.1 K/uL (3.6-10.2)
[2025-04-20 07:30] LABS: CREATININE 0.5 mg/dL (0.6-1.3); SODIUM SERUM 141 mmol/L (136-145); UREA NITROGEN, BLOOD 14 mg/dL (7-18)
[2025-04-21] VITALS (15 sets, daily range): BP systolic 97–116; BP diastolic 68–75; TEMP 97.6–98.2; O2SAT 97–99
[2025-04-22] VITALS (13 sets, daily range): BP systolic 106–120; BP diastolic 73–77; TEMP 97.8–98; O2SAT 97–99
[2025-04-23] VITALS (13 sets, daily range): BP systolic 109–110; BP diastolic 69–70; TEMP 97.4–98.8; O2SAT 97–99
[2025-04-23] MEDS: ASCORBIC ACID 500 MG TABLET GT SCH (20:20)
[2025-04-24] VITALS (14 sets, daily range): BP systolic 102–118; BP diastolic 63–74; TEMP 97.4–98.4; O2SAT 97–99
[2025-04-25] VITALS (14 sets, daily range): BP systolic 115–122; BP diastolic 72–77; TEMP 97.9–98.7; O2SAT 98–99
[2025-04-26] VITALS (12 sets, daily range): BP systolic 107–143; BP diastolic 67–79; TEMP 97.8–98.6; O2SAT 98–99
[2025-04-27] VITALS (12 sets, daily range): BP systolic 112–133; BP diastolic 74–82; TEMP 97.6–98.4; O2SAT 96–99
[2025-04-28] VITALS (13 sets, daily range): BP systolic 118–133; BP diastolic 79–81; TEMP 97.3–97.8; O2SAT 97–99
[2025-04-29] VITALS (12 sets, daily range): BP systolic 111; BP diastolic 76; TEMP 98.3; O2SAT 98–99
[2025-04-30] VITALS (13 sets, daily range): BP systolic 104–119; BP diastolic 75–78; TEMP 97.5–97.6; O2SAT 98–99
[2025-05-01] VITALS (14 sets, daily range): BP systolic 93–118; BP diastolic 66–78; TEMP 98.5–98.9; O2SAT 98–99
[2025-05-02] VITALS (11 sets, daily range): BP systolic 105–112; BP diastolic 69–73; TEMP 97.7–98.2; O2SAT 98–99
[2025-05-03] VITALS (12 sets, daily range): BP systolic 104–116; BP diastolic 75–79; TEMP 97.7–98.6; O2SAT 97–99
[2025-05-04] VITALS (13 sets, daily range): BP systolic 106–108; BP diastolic 67–71; TEMP 97.8–98.5; O2SAT 98–99
[2025-05-05] VITALS (13 sets, daily range): BP systolic 116–118; BP diastolic 72–78; TEMP 97.8–98.7; O2SAT 98–99
[2025-05-06] VITALS (11 sets, daily range): BP systolic 123; BP diastolic 83; TEMP 98; O2SAT 98–99
[2025-05-07] VITALS (14 sets, daily range): BP systolic 102–122; BP diastolic 68–85; TEMP 97.7–98; O2SAT 98–99
[2025-05-07] MEDS: INSULIN REGULAR, HUMAN 1000 UNIT/10 ML VIAL SQ PRN (00:35)
[2025-05-08] VITALS (13 sets, daily range): BP systolic 100–110; BP diastolic 64–70; TEMP 97.6–98.9; O2SAT 97–99
[2025-05-09] VITALS (13 sets, daily range): BP systolic 99–109; BP diastolic 64–71; TEMP 97.9–98.1; O2SAT 98–99
[2025-05-10] VITALS (14 sets, daily range): BP systolic 109; BP diastolic 72–76; TEMP 97.6–98.2; O2SAT 98–99
[2025-05-11] VITALS (13 sets, daily range): BP systolic 109–110; BP diastolic 71–75; TEMP 98.2–98.4; O2SAT 97–99
[2025-05-12] VITALS (13 sets, daily range): BP systolic 110–113; BP diastolic 74–77; TEMP 97.5–98.1; O2SAT 97–99
[2025-05-13] VITALS (13 sets, daily range): BP systolic 116–117; BP diastolic 76–82; TEMP 98.4–98.6; O2SAT 97–99
[2025-05-13] MEDS: INSULIN GLARGINE,HUM 300 UNITS/3 ML CARTRIDGE SQ SCH (21:39)
[2025-05-14] VITALS (14 sets, daily range): BP systolic 106–108; BP diastolic 70–76; TEMP 97.9; O2SAT 97–99
[2025-05-15] VITALS (13 sets, daily range): BP systolic 100–116; BP diastolic 61–75; TEMP 98–98.4; O2SAT 97–99
[2025-05-15] MEDS: FLU VACC 2025-26(6MOS UP)/PF 0.5 ML SYRINGE IM ONE (11:23)
[2025-05-16] VITALS (13 sets, daily range): BP systolic 104–129; BP diastolic 67–83; TEMP 97.9–98.2; O2SAT 97–99
[2025-05-17] VITALS (12 sets, daily range): BP systolic 103; BP diastolic 66; TEMP 97.9; O2SAT 97–99
[2025-05-18] VITALS (14 sets, daily range): BP systolic 106–117; BP diastolic 70–74; TEMP 97.8–98.7; O2SAT 97–99
[2025-05-19] VITALS (13 sets, daily range): BP systolic 100–111; BP diastolic 60–74; TEMP 98.1–98.4; O2SAT 97–99
[2025-05-19 07:33] LABS: PLATELET COUNT (AUTO) 256 K/uL (152-348); RED BLOOD CELL COUNT(AUTO) 4.86 MIL/uL (4.06-5.63); RED CELL DISTRIBUTION WIDTH 14.0 % (12.1-16.2); WHITE BLOOD COUNT (AUTO) 4.9 K/uL (3.6-10.2)
[2025-05-19 07:40] LABS: ASPARTATE AMINOTRANSFERASE 30 U/L (15-37); CREATININE 0.6 mg/dL (0.6-1.3); SODIUM SERUM 147 mmol/L (136-145); TOTAL PROTEIN, SERUM 8.2 g/dL (6.4-8.2); UREA NITROGEN, BLOOD 19 mg/dL (7-18)
[2025-05-20] VITALS (14 sets, daily range): BP systolic 100–117; BP diastolic 64–76; TEMP 98–98.6; O2SAT 97–100
[2025-05-21] VITALS (13 sets, daily range): BP systolic 96–105; BP diastolic 61–69; TEMP 98.6; O2SAT 97–100
[2025-05-22] VITALS (15 sets, daily range): BP systolic 102–109; BP diastolic 68–73; TEMP 97.9–98.7; O2SAT 98–99
[2025-05-23] VITALS (13 sets, daily range): BP systolic 102–108; BP diastolic 66–73; TEMP 97.9–98.1; O2SAT 98–99
[2025-05-24] VITALS (15 sets, daily range): BP systolic 117–119; BP diastolic 78; TEMP 97.8–98.6; O2SAT 98–99
[2025-05-25] VITALS (13 sets, daily range): BP systolic 102–103; BP diastolic 70–71; TEMP 98.3–98.8; O2SAT 97–99
[2025-05-26] VITALS (15 sets, daily range): BP systolic 107–108; BP diastolic 70–76; TEMP 97.2–97.8; O2SAT 98–99
[2025-05-26 07:01] LABS: PLATELET COUNT (AUTO) 259 K/uL (152-348); RED BLOOD CELL COUNT(AUTO) 4.99 MIL/uL (4.06-5.63); RED CELL DISTRIBUTION WIDTH 14.4 % (12.1-16.2); WHITE BLOOD COUNT (AUTO) 5.3 K/uL (3.6-10.2)
[2025-05-26 07:07] LABS: CREATININE 0.6 mg/dL (0.6-1.3); SODIUM SERUM 141 mmol/L (136-145); UREA NITROGEN, BLOOD 20 mg/dL (7-18)
[2025-05-27] VITALS (12 sets, daily range): BP systolic 100–112; BP diastolic 64–78; TEMP 97.6–98; O2SAT 98–99
[2025-05-28] VITALS (12 sets, daily range): BP systolic 106–109; BP diastolic 71–72; TEMP 97.5–98.2; O2SAT 98–99
[2025-05-29] VITALS (14 sets, daily range): BP systolic 100–111; BP diastolic 62–67; TEMP 97.8–98.6; O2SAT 97–99
[2025-05-30] VITALS (12 sets, daily range): BP systolic 108–118; BP diastolic 62–73; TEMP 98–98.1; O2SAT 97–99
[2025-05-31] VITALS (15 sets, daily range): BP systolic 90–120; BP diastolic 55–75; TEMP 98.1; O2SAT 97–99
[2025-06-01] VITALS (13 sets, daily range): BP systolic 101–113; BP diastolic 62–75; TEMP 97.8–98.8; O2SAT 98–99
[2025-06-02] VITALS (13 sets, daily range): BP systolic 108–120; BP diastolic 71–80; TEMP 97.5–97.8; O2SAT 98–99
[2025-06-03] VITALS (14 sets, daily range): BP systolic 100–125; BP diastolic 66–75; TEMP 98.1–98.9; O2SAT 98–99
[2025-06-04] VITALS (12 sets, daily range): BP systolic 99–113; BP diastolic 62–72; TEMP 97.1–97.8; O2SAT 97–99
[2025-06-05] VITALS (13 sets, daily range): BP systolic 95–108; BP diastolic 64–74; TEMP 97.6; O2SAT 98–99
[2025-06-06] VITALS (13 sets, daily range): BP systolic 112–117; BP diastolic 71–73; TEMP 97.9–98.2; O2SAT 98–99
[2025-06-07] VITALS (13 sets, daily range): BP systolic 104–113; BP diastolic 73–76; TEMP 97.8–98.1; O2SAT 97–99
[2025-06-08] VITALS (12 sets, daily range): BP systolic 110–117; BP diastolic 72–79; TEMP 98–98.4; O2SAT 97–99
[2025-06-09] VITALS (14 sets, daily range): BP systolic 117–126; BP diastolic 63–77; TEMP 97.8–98.7; O2SAT 97–99
[2025-06-10] VITALS (14 sets, daily range): BP systolic 105–126; BP diastolic 71–80; TEMP 98.7–98.8; O2SAT 97–99
[2025-06-11] VITALS (14 sets, daily range): BP systolic 111–133; BP diastolic 54–76; TEMP 98–98.4; O2SAT 97–99
[2025-06-11] MEDS: INSULIN GLARGINE,HUM 300 UNITS/3 ML CARTRIDGE SQ SCH (22:00)
[2025-06-12] VITALS (13 sets, daily range): BP systolic 107–108; BP diastolic 70–72; TEMP 98.4–98.7; O2SAT 97–99
[2025-06-13] VITALS (14 sets, daily range): BP systolic 101–102; BP diastolic 63–68; TEMP 97.8–97.9; O2SAT 98–99
[2025-06-14] VITALS (13 sets, daily range): BP systolic 103–110; BP diastolic 64–72; TEMP 97.9; O2SAT 98–99
[2025-06-15] VITALS (13 sets, daily range): BP systolic 107–119; BP diastolic 70–78; TEMP 98–98.4; O2SAT 96–99
[2025-06-16] VITALS (12 sets, daily range): BP systolic 106–115; BP diastolic 72–76; TEMP 98–98.1; O2SAT 97–99
[2025-06-17] VITALS (11 sets, daily range): BP systolic 104–118; BP diastolic 70–73; TEMP 97.9–98.7; O2SAT 97–99
[2025-06-18] VITALS (16 sets, daily range): BP systolic 97–109; BP diastolic 64–72; TEMP 98–98.7; O2SAT 98–99
[2025-06-19] VITALS (11 sets, daily range): BP systolic 120–123; BP diastolic 71–77; TEMP 97.9–98.4; O2SAT 98–99
[2025-06-20] VITALS (12 sets, daily range): BP systolic 98–120; BP diastolic 63–75; TEMP 97.8–99; O2SAT 98–99
[2025-06-21] VITALS (13 sets, daily range): BP systolic 105–111; BP diastolic 61–67; TEMP 98.5–98.8; O2SAT 98–99
[2025-06-21 06:49] LABS: CREATININE 0.9 mg/dL (0.6-1.3); SODIUM SERUM 140.0 mmol/L (136-145); UREA NITROGEN, BLOOD 24.0 mg/dL (7-18)
[2025-06-21 06:52] LABS: PLATELET COUNT (AUTO) 208 K/uL (152-348); RED BLOOD CELL COUNT(AUTO) 4.88 MIL/uL (4.06-5.63); RED CELL DISTRIBUTION WIDTH 14.6 % (12.1-16.2); WHITE BLOOD COUNT (AUTO) 6.8 K/uL (3.6-10.2)
[2025-06-22] VITALS (11 sets, daily range): BP systolic 97–120; BP diastolic 59–83; TEMP 98.2–98.5; O2SAT 98–99
[2025-06-23] VITALS (12 sets, daily range): BP systolic 111–125; BP diastolic 70–82; TEMP 98.7–98.9; O2SAT 98–99
[2025-06-24] VITALS (13 sets, daily range): BP systolic 99–109; BP diastolic 67–68; TEMP 98.3–98.5; O2SAT 98–99
[2025-06-24] MEDS ORDERED: DEXTROSE 50% 50 ML DISP.SYRIN IV PRN (21:00)
[2025-06-24] MEDS: INSULIN REGULAR, HUMAN 1000 UNIT/10 ML VIAL SQ PRN (21:46)
[2025-06-24] MEDS: BLOOD SUGAR DIAGNOSTIC 1 EACH STRIP VI SCH (21:48)
[2025-06-25] VITALS (12 sets, daily range): BP systolic 106–113; BP diastolic 70–75; TEMP 98.6–99.1; O2SAT 98–99
[2025-06-25] MEDS: INSULIN GLARGINE,HUM 300 UNITS/3 ML CARTRIDGE SQ SCH (08:37)
[2025-06-26] VITALS (14 sets, daily range): BP systolic 104–120; BP diastolic 66–76; TEMP 98.4–98.8; O2SAT 97–99
[2025-06-27] VITALS (15 sets, daily range): BP systolic 113–124; BP diastolic 74–77; TEMP 98–98.6; O2SAT 98–99
[2025-06-28] VITALS (13 sets, daily range): BP systolic 92–112; BP diastolic 58–74; TEMP 98.5–98.8; O2SAT 96–99
[2025-06-29] VITALS (14 sets, daily range): BP systolic 107–131; BP diastolic 68–78; TEMP 98.2–99.2; O2SAT 96–99
[2025-06-30] VITALS (12 sets, daily range): BP systolic 116–149; BP diastolic 74–84; TEMP 97.6–98.7; O2SAT 96–100
[2025-07-01] VITALS (14 sets, daily range): BP systolic 111–116; BP diastolic 68–73; TEMP 98.2–99; O2SAT 96–99
[2025-07-02] VITALS (11 sets, daily range): BP systolic 116–120; BP diastolic 74–77; TEMP 98.6–99; O2SAT 96–99
[2025-07-03] VITALS (14 sets, daily range): BP systolic 112–118; BP diastolic 72–79; TEMP 98–98.1; O2SAT 94–99
[2025-07-04] VITALS (15 sets, daily range): BP systolic 104–127; BP diastolic 66–75; TEMP 98.4–98.6; O2SAT 96–99
[2025-07-05] VITALS (12 sets, daily range): BP systolic 119–126; BP diastolic 7–77; TEMP 98.6; O2SAT 96–99
[2025-07-05] MEDS ORDERED: DEXTROSE 50% 50 ML DISP.SYRIN IV PRN (13:30)
[2025-07-05] MEDS: INSULIN REGULAR, HUMAN 1000 UNIT/10 ML VIAL SQ PRN (17:22)
[2025-07-05] MEDS: BLOOD SUGAR DIAGNOSTIC 1 EACH STRIP VI SCH (17:22)
[2025-07-06] VITALS (12 sets, daily range): BP systolic 108–117; BP diastolic 65–68; TEMP 98–98.7; O2SAT 97–99
[2025-07-07] VITALS (13 sets, daily range): BP systolic 94–123; BP diastolic 59–71; TEMP 98.3–99.1; O2SAT 97–99
[2025-07-08] VITALS (12 sets, daily range): BP systolic 98–107; BP diastolic 46–71; TEMP 98.1–98.4; O2SAT 98–99
[2025-07-09] VITALS (8 sets, daily range): BP systolic 103–129; BP diastolic 72–84; TEMP 97.7; O2SAT 98–99
== END 2025-07-09 11:10 | disposition short-term general hospital (02) | DRG 951 ==
LOC: SA 20:47
PROVIDERS: ADMIT Internal Medicine; ATTEND Internal Medicine
PROC: 05HB33Z Insertion of Infusion Device into Right Basilic Vein, Percutaneous Approach (ICD-10-PCS; principal; 2024-10-20)
PROC: 0JB00ZZ Excision of Scalp Subcutaneous Tissue and Fascia, Open Approach (ICD-10-PCS; 2024-10-30)
PROC: 0JB00ZZ Excision of Scalp Subcutaneous Tissue and Fascia, Open Approach (ICD-10-PCS; 2024-11-04)
PROC: 0JB00ZZ Excision of Scalp Subcutaneous Tissue and Fascia, Open Approach (ICD-10-PCS; 2024-11-13)
PROC: 0JB00ZZ Excision of Scalp Subcutaneous Tissue and Fascia, Open Approach (ICD-10-PCS; 2024-11-18)
PROC: 0JB00ZZ Excision of Scalp Subcutaneous Tissue and Fascia, Open Approach (ICD-10-PCS; 2024-11-25)
PROC: 0JB00ZZ Excision of Scalp Subcutaneous Tissue and Fascia, Open Approach (ICD-10-PCS; 2024-12-02)
PROC: 0JB00ZZ Excision of Scalp Subcutaneous Tissue and Fascia, Open Approach (ICD-10-PCS; 2024-12-09)
PROC: 0KB00ZZ Excision of Head Muscle, Open Approach (ICD-10-PCS; 2024-12-16)
PROC: 0KB00ZZ Excision of Head Muscle, Open Approach (ICD-10-PCS; 2024-12-23)
PROC: 0KB00ZZ Excision of Head Muscle, Open Approach (ICD-10-PCS; 2024-12-30)
PROC: 0KB00ZZ Excision of Head Muscle, Open Approach (ICD-10-PCS; 2025-01-07)
PROC: 0KB00ZZ Excision of Head Muscle, Open Approach (ICD-10-PCS; 2025-01-13)
PROC: 0KB00ZZ Excision of Head Muscle, Open Approach (ICD-10-PCS; 2025-01-20)
PROC: 0KB00ZZ Excision of Head Muscle, Open Approach (ICD-10-PCS; 2025-01-29)
PROC: 0JB00ZZ Excision of Scalp Subcutaneous Tissue and Fascia, Open Approach (ICD-10-PCS; 2025-02-04)
PROC: 0JB00ZZ Excision of Scalp Subcutaneous Tissue and Fascia, Open Approach (ICD-10-PCS; 2025-02-10)
DX: J96.21 Acute and chronic respiratory failure with hypoxia (principal); G93.40 Encephalopathy, unspecified; E11.649 Type 2 diabetes mellitus with hypoglycemia without coma; E87.0 Hyperosmolality and hypernatremia; L89.813 Pressure ulcer of head, stage 3; G93.89 Other specified disorders of brain; H70.93 Unspecified mastoiditis, bilateral; Z99.81 Dependence on supplemental oxygen; Z93.0 Tracheostomy status; L89.814 Pressure ulcer of head, stage 4; G40.909 Epilepsy, unspecified, not intractable, without status epilepticus; I10 Essential (primary) hypertension; H05.20 Unspecified exophthalmos; J98.11 Atelectasis; S02.19XD Other fracture of base of skull, subsequent encounter for fracture with routine healing; S06.5XAD Traumatic subdural hemorrhage with loss of consciousness status unknown, subsequent encounter; V03.99XD Pedestrian with other conveyance injured in collision with car, pick-up truck or van, unspecified whether traffic or nontraffic accident, subsequent encounter; S12.300D Unspecified displaced fracture of fourth cervical vertebra, subsequent encounter for fracture with routine healing; S12.400D Unspecified displaced fracture of fifth cervical vertebra, subsequent encounter for fracture with routine healing; S12.500D Unspecified displaced fracture of sixth cervical vertebra, subsequent encounter for fracture with routine healing; S12.600D Unspecified displaced fracture of seventh cervical vertebra, subsequent encounter for fracture with routine healing; S05.72XD Avulsion of left eye, subsequent encounter; R74.01 Elevation of levels of liver transaminase levels; E11.65 Type 2 diabetes mellitus with hyperglycemia; R13.10 Dysphagia, unspecified; Z79.4 Long term (current) use of insulin; S02.113D Unspecified occipital condyle fracture, subsequent encounter for fracture with routine healing; S02.69XD Fracture of mandible of other specified site, subsequent encounter for fracture with routine healing; S82.832D Other fracture of upper and lower end of left fibula, subsequent encounter for closed fracture with routine healing; S22.43XD Multiple fractures of ribs, bilateral, subsequent encounter for fracture with routine healing; S27.322D Contusion of lung, bilateral, subsequent encounter; S42.102D Fracture of unspecified part of scapula, left shoulder, subsequent encounter for fracture with routine healing; S42.032D Displaced fracture of lateral end of left clavicle, subsequent encounter for fracture with routine healing; S37.012D Minor contusion of left kidney, subsequent encounter; Z90.81 Acquired absence of spleen; Z93.1 Gastrostomy status; Z74.01 Bed confinement status; Z22.322 Carrier or suspected carrier of Methicillin resistant Staphylococcus aureus; S38.1XXD Crushing injury of abdomen, lower back, and pelvis, subsequent encounter
CPT/HCPCS: 36415; 71045; 72040; 72072; 76705; 82746; 83550; 83735; 83921; 84100; 84443; 85025; 85610; 86580; 87040; 87070; 93005; 94640; 94760; 95819; 99082-TC; A4663; A6209; A6213; J1650; J1815; J2185; J3490; J3590; J7050

== ENCOUNTER 2025-07-09 11:12 | Emergency (ER) | payer OTHER ==
[~2025-07-09] VITALS: Ht 157.5 cm; Wt 63.5 kg
[2025-07-09] MEDS ORDERED: EPINEPHRINE 1:10,000 1 MG/10 ML DISP.SYRIN ONE (11:45)
[2025-07-09] MEDS ORDERED: SODIUM BICARBONATE 8.4% 50 MEQ/50 ML DISP.SYRIN IV ONE (11:45)
[2025-07-09] MEDS ORDERED: CALCIUM CHLORIDE 1 GM/10 ML DISP.SYRIN IVP ONE (11:45)
[2025-07-09 11:58] VITALS: BP 0/0
[2025-07-09 18:52] VITALS: BP 0/0; O2SAT 0
== END 2025-07-09 18:53 ==
LOC: ER 11:12
DX: I46.9 Cardiac arrest, cause unspecified (principal); K92.2 Gastrointestinal hemorrhage, unspecified; J96.10 Chronic respiratory failure, unspecified whether with hypoxia or hypercapnia; I10 Essential (primary) hypertension; G93.49 Other encephalopathy; G40.909 Epilepsy, unspecified, not intractable, without status epilepticus; E11.9 Type 2 diabetes mellitus without complications
CPT/HCPCS: 99291; 92950; J3490 ×2; J0169; A4606; A4663